=== PATIENT | female | born 1955 | race Caucasian/White ===

== ENCOUNTER → 2017-01-05 | Outpatient (CLI) | payer MEDICAID ==
[~2017-01-05] MED LIST: MILLIPRED5 MG PO
--- NOTE | 2017-01-05 13:35 | RADIOLOGY REPORT PS360 ---
DIG MAMM-DX UNI A/VW-RT W/CAD COMPARISON: 12/15/2016 INDICATION: Follow-up abnormal mammogram ORDERING PHYSICIAN: Wilton Chamberlain MD PATIENT AGE: 61 years TECHNIQUE: Spot compression views and right mL FINDINGS: Asymmetric density in the upper outer right breast does appear to compress out as fibroglandular tissue. Benign-appearing nodular densities or islands of tissue noted anteriorly. No malignant appearing mass or malignant appearing microcalcification IMPRESSION: Benign findings BI-RADS CATEGORY: 2_Benign RECOMMENDED FOLLOWUP: Screening mammogram November 2017 (A letter has been sent to the patient regarding results of the study.)
== END ==
LOC: RAD 12:34
DX: R92.8 Other abnormal and inconclusive findings on diagnostic imaging of breast (principal)
CPT/HCPCS: G0206-RT

== ENCOUNTER → 2017-08-16 | Outpatient (CLI) | payer MEDICAID ==
[2017-08-16 09:23] LABS: HEMOGLOBIN 10.5 g/dL (12.2-16.2); LYMPH # 1.3 K/mm3 (0.7-4.5); LYMPH % 27.4 % (10-50.0)
[2017-08-16 11:53] LABS: URINE BILIRUBIN - DIPSTICK NEGATIVE (NEG); URINE BLOOD NEGATIVE (NEG)
[2017-08-16 12:36] LABS: BUN 24 mg/dL (7-18)
[2017-08-16 12:39] LABS: GFR (ESTIMATED) 46 ML/MIN (59-)
== END ==
LOC: LAB 08:25
PROVIDERS: Internal Medicine Nephrology
DX: N28.9 Disorder of kidney and ureter, unspecified (principal)